=== PATIENT | male | born 1990 | race Two or more races ===

== ENCOUNTER 2021-04-21 09:55 | Emergency (ER) | payer OTHER ==
[~2021-04-21] VITALS: Ht 182.9 cm; Wt 122.0 kg
[2021-04-21 12:19] VITALS: BP 138/81
[2021-04-21] MEDS ORDERED: HYDR-4723 PO (12:53)
[2021-04-21] MEDS ORDERED: IBUP-1554 PO (12:53)
[2021-04-21] MEDS ORDERED: IBUPROFEN 600 MG TABLET PO ONE (13:00)
[2021-04-21] MEDS ORDERED: HYDROCODONE/ACETAMINOPHEN 5-325 MG TABLET PO ONE (13:00)
== END 2021-04-21 13:10 | disposition home or self-care (01) ==
LOC: EMS 09:55
DX: S53.402A Unspecified sprain of left elbow, initial encounter (principal); F17.210 Nicotine dependence, cigarettes, uncomplicated; W18.39XA Other fall on same level, initial encounter; Y93.89 Activity, other specified; Y92.89 Other specified places as the place of occurrence of the external cause; Y99.8 Other external cause status
CPT/HCPCS: 29105; 99283